=== PATIENT | female | born 1975 | race Caucasian/White ===

== ENCOUNTER 2016-04-20 11:19 | Emergency (ER) | payer OTHER ==
[~2016-04-20] VITALS: Ht 157.5 cm; Wt 81.6 kg
[~2016-04-20 11:19] MED LIST: BENADRYL PO; PERMETHRIN TP
[2016-04-20 11:31] VITALS: BP 120/50
--- NOTE | 2016-04-20 11:34 | NUR ---
Patient ambulated to bed 07.
--- NOTE | 2016-04-20 11:35 | NUR ---
PATIENT PRESENTS TO ED WITH LOWER ABD PAIN X2 DAYS WITH DIARRHEA .DENIES N/V; SKIN IS PINK/WARM/DRY; AAOX4 WITH EVEN AND STEADY GAIT; LUNGS CLEAR BL; HR EVEN AND REGULAR; PT DENIES ANY FEVER, CP, SOB, OR COUGH AT THIS TIME; PATIENT STATES LOWER ABD PAIN RADIATING TO LOWER BACK 10/10 AT THIS TIME; VSS; PATIENT POSITIONED FOR COMFORT; HOB ELEVATED; BEDRAILS UP X2; BED DOWN. ER MD MADE AWARE OF PT STATUS.
--- NOTE | 2016-04-20 11:41 | NUR ---
Dr. Garcia evaluating patient at bedside.
--- NOTE | 2016-04-20 12:02 | NUR ---
Patient discharged with v/s stable. Written and verbal after care instructions given and explained. Patient alert, oriented and verbalized understanding of instructions. Ambulatory with steady gait. All questions addressed prior to discharge. ID band removed. Patient advised to follow up with PMD. Rx of MACROBID AND MOTRIN given. Patient educated on indication of medication including possible reaction and side effects. Opportunity to ask questions provided and answered.
[2016-04-20 12:03] VITALS: BP 107/65
== END 2016-04-20 12:02 | disposition home or self-care (01) ==
LOC: MED 11:19
DX: N39.0 Urinary tract infection, site not specified (principal); Z90.49 Acquired absence of other specified parts of digestive tract

== ENCOUNTER 2017-12-18 08:18 | Emergency (ER) | payer OTHER ==
[~2017-12-18] VITALS: Ht 160 cm; Wt 82.1 kg
[2017-12-18 08:20] VITALS: BP 108/69
--- NOTE | 2017-12-18 08:24 | NUR ---
PT AMBULATES TO BED 6
--- NOTE | 2017-12-18 08:30 | NUR ---
42yo f to er for c/o epicastric pain and headsche since yesterday. aaox3, -dizziness, -blurry vision, +nausea, - v/d, bs active x4, abd soft tender in epigastric region, ls clear throughout, rr even/unlabored, -cough,- sob, - cp. skin warm and dry, pt report subjective fever, currently afebrial. er md made aware, will continue to monitor, er md made aware. pt placed in gown and positioned for comfort.
[2017-12-18] MEDS ORDERED: ONDANSETRON 4 MG ODT PO ONE (08:45)
[2017-12-18] MEDS ORDERED: LIDOCAINE VISCOUS 2% 20 ML UDC PO ONE (08:45)
[2017-12-18] MEDS ORDERED: ALUMINUM HYD/MAG/SIMETHICONE 30 ML UDC PO ONE (08:45)
--- NOTE | 2017-12-18 09:25 | NUR ---
PT RESTING IN NO APPEARENT DISTRESS. PT DENIEAS ANY PAIN AT THIS TIME
[2017-12-18 09:52] VITALS: BP 110/62
== END 2017-12-18 09:52 | disposition home or self-care (01) ==
LOC: MED 08:18
DX: K29.70 Gastritis, unspecified, without bleeding (principal); Z90.49 Acquired absence of other specified parts of digestive tract
CPT/HCPCS: 81002; 81025; 99284; S0119

== ENCOUNTER 2018-07-28 16:11 | Emergency (ER) | payer OTHER ==
[~2018-07-28] VITALS: Ht 160 cm; Wt 84.6 kg
--- NOTE | 2018-07-28 16:37 | NUR ---
C/O NON-RADIATING, SHARP 10/10 CHEST PAIN STARTING TODAY. DENIES N/V/D, SOB. PT REPORTS AN EPISODE OF BLURRY VISION AROUND 1300 TODAY. PT SKIN IS DRY AND WARM. PT ALERT ANSWERING QUESTIONS APPROPRIATELY. PT NSR 61, O2 SAT 98% RA
--- NOTE | 2018-07-28 16:45 | NUR ---
PT SINUS HAYDEE AT 54 BPM, ASYMPTOMATIC, DR. PERSON AWARE.
--- NOTE | 2018-07-28 16:58 | NUR ---
URINE COLLECTED AND SENT TO LAB
[2018-07-28] MEDS ORDERED: KETOROLAC 30 MG/ML VIAL IM ONE (17:05)
[2018-07-28 17:33] LABS: BASOPHILS % (AUTO) 0.6 % (0.0-2.0); EOSINOPHILS # (AUTO) 0.2 K/uL (0-0.4); EOSINOPHILS % (AUTO) 2.4 % (0.0-4.0); HEMATOCRIT 38.8 % (36-48); HEMOGLOBIN 13.2 g/dL (12.0-16.0); LYMPHOCYTES # (AUTO) 2.9 K/uL (2.5-16.5); LYMPHOCYTES % (AUTO) 35.2 % (20.5-51.1); MEAN CORPUSCULAR HEMOGLOBIN 31 pg (27-31); MEAN CORPUSCULAR HGB CONC 34 g/dL (33-37); MONOCYTES # (AUTO) 0.6 K/uL (0.8-1.0); NEUTROPHILS # (AUTO) 4.6 K/uL (1.8-7.7); NEUTROPHILS % (AUTO) 54.8 % (42.2-75.2); PLATELET COUNT (AUTO) 350 K/uL (140-450); RED BLOOD CELL COUNT(AUTO) 4.26 MIL/uL (4.20-5.40); RED CELL DISTRIBUTION WIDTH 12.7 % (11.6-13.7); WHITE BLOOD COUNT (AUTO) 8.3 K/uL (4.8-10.8)
[2018-07-28 17:47] LABS: ANION GAP 9.7 (8-16); CREATININE 0.8 mg/dL (0.6-1.3); POTASSIUM 3.7 mmol/L (3.5-5.1)
[2018-07-28 17:53] LABS: ALBUMIN 3.5 g/dL (3.4-5.0); TOTAL BILIRUBIN 0.2 mg/dL (0.0-1.0)
--- NOTE | 2018-07-28 18:17 | NUR ---
pt resting in bed, no c/o cp at this time
[2018-07-28 18:56] VITALS: BP 107/66
== END 2018-07-28 18:56 | disposition home or self-care (01) ==
LOC: MED 16:11
DX: R07.89 Other chest pain (principal); F43.9 Reaction to severe stress, unspecified; Z90.49 Acquired absence of other specified parts of digestive tract
CPT/HCPCS: 36415; 71045; 80053; 82550; 82553; 83690; 84484; 85025; 93005; 96372; 99284; J1885; Q0092

== ENCOUNTER 2019-06-03 11:30 | Emergency (ER) | payer OTHER ==
[~2019-06-03] VITALS: Ht 167.6 cm; Wt 88.9 kg
[2019-06-03 11:36] VITALS: BP 103/63
--- NOTE | 2019-06-03 11:43 | NUR ---
Pt ambulated to restroom to provide urine sample.
--- NOTE | 2019-06-03 12:28 | NUR ---
pt amb to bed 5
--- NOTE | 2019-06-03 12:49 | NUR ---
Transferred to bed 11 for further care. RN re-evaluating patient at bedside.
--- NOTE | 2019-06-03 12:49 | NUR ---
pt moved to bed 11
[2019-06-03] MEDS ORDERED: ONDANSETRON 4 MG ODT PO ONE (12:55)
[2019-06-03] MEDS ORDERED: FAMOTIDINE 20 MG TAB PO ONE (12:55)
[2019-06-03] MEDS ORDERED: LIDOCAINE VISCOUS 2% 20 ML UDC PO ONE (12:55)
[2019-06-03] MEDS ORDERED: ALUMINUM HYD/MAG/SIMETHICONE 30 ML UDC PO ONE (12:55)
--- NOTE | 2019-06-03 12:57 | NUR ---
43 Y/O F C/C ABDOMINAL PAIN X 1 DAY. PER PT HAVING PAIN DUE TO GASTRITIS, 12/19, PRESSURE SENSATION, NON RADIATING. PT TAKEN OMEPRAZOLE AND PAIN RX. PT NKA. NO HX. SX OF GALLBLADER. NO N/V/D. SIDE RAIL X1.
[2019-06-03 13:49] VITALS: BP 103/63
--- NOTE | 2019-06-03 13:50 | NUR ---
Patient discharged with v/s stable. Written and verbal after care instructions given and explained. Patient alert, oriented and verbalized understanding of instructions. Ambulatory with steady gait. All questions addressed prior to discharge. ID band removed. Patient advised to follow up with PMD. Rx of zofran odt, omeprazole, cephalexin given. Patient educated on indication of medication including possible reaction and side effects. Opportunity to ask questions provided and answered.
== END 2019-06-03 13:50 | disposition home or self-care (01) ==
LOC: MED 11:30
DX: K29.70 Gastritis, unspecified, without bleeding (principal); N39.0 Urinary tract infection, site not specified; K21.9 Gastro-esophageal reflux disease without esophagitis; Z90.49 Acquired absence of other specified parts of digestive tract
CPT/HCPCS: 81002; 81025; 99284; Q0162

== ENCOUNTER 2023-02-09 22:09 | Emergency (ER) | payer OTHER ==
[~2023-02-09] VITALS: Ht 157.5 cm; Wt 99.8 kg
[2023-02-09 22:10] VITALS: BP 106/76; PULSE 82; RESP 17; TEMP 97.8; O2SAT 97
[2023-02-09] MEDS ORDERED: MIRABULK PO (23:49)
[2023-02-09] MEDS ORDERED: PHEN26CR2 RC (23:49)
== END 2023-02-09 23:55 | disposition home or self-care (01) ==
LOC: MED 22:09
DX: K64.4 Residual hemorrhoidal skin tags (principal); K59.00 Constipation, unspecified; K21.9 Gastro-esophageal reflux disease without esophagitis; Z79.899 Other long term (current) drug therapy
CPT/HCPCS: 99282

== ENCOUNTER 2023-10-11 11:54 | Inpatient (IN) | payer OTHER ==
[~2023-10-11] VITALS: Ht 167.6 cm; Wt 110.7 kg
[~2023-10-11 11:54] MED LIST changes: -BENADRYL PO; +MIRABULK PO; -PERMETHRIN TP; +PHEN26CR2 RC
[2023-10-11 12:06] VITALS: BP 115/56; PULSE 51; RESP 16; TEMP 97.9; O2SAT 99
[2023-10-11 12:48] LABS: BASOPHILS % (AUTO) 0.5 % (0.0-2.0); EOSINOPHILS # (AUTO) 0.1 K/uL (0-0.4); EOSINOPHILS % (AUTO) 1.7 % (0.0-4.0); HEMATOCRIT 41.1 % (36-48); HEMOGLOBIN 13.9 g/dL (12.0-16.0); LYMPHOCYTES # (AUTO) 2.7 K/uL (2.5-16.5); LYMPHOCYTES % (AUTO) 35.8 % (20.5-51.1); MEAN CORPUSCULAR HEMOGLOBIN 31 pg (27-31); MEAN CORPUSCULAR HGB CONC 34 g/dL (33-37); MEAN CORPUSCULAR VOLUME 91.6 fL (80-94); MONOCYTES # (AUTO) 0.5 K/uL (0.8-1.0); MONOCYTES % (AUTO) 6.2 % (1.7-9.3); NEUTROPHILS # (AUTO) 4.1 K/uL (1.8-7.7); NEUTROPHILS % (AUTO) 55.8 % (42.2-75.2); PLATELET COUNT (AUTO) 364 K/uL (140-450); RED BLOOD CELL COUNT(AUTO) 4.48 MIL/uL (4.20-5.40); WHITE BLOOD COUNT (AUTO) 7.4 K/uL (4.8-10.8)
[2023-10-11 13:07] LABS: ANION GAP 13.8 (8-16); CALCIUM 9.3 mg/dL (8.5-10.1); CARBON DIOXIDE 25.9 mmol/L (21-32); CREATININE 0.8 mg/dL (0.6-1.3); INR 1.04 (0.8-1.2); PARTIAL THROMBOPLASTIN TIME 26.7 secs (22-35.6); POTASSIUM 3.7 mmol/L (3.5-5.1); PROTHROMBIN TIME 10.9 secs (10.8-13.4)
[2023-10-11 13:20] LABS: ALANINE AMINOTRANSFERASE 52 U/L (12-78); ALBUMIN 3.6 g/dL (3.4-5.0); ALKALINE PHOSPHATASE 72 U/L (50-136); ASPARTATE AMINOTRANSFERASE 28 U/L (15-37); BILIRUBIN,DIRECT 0.1 mg/dL (0.0-0.3); FREE T4 (FREE THYROXINE) 1.07 ng/dL (0.76-1.46); THYROID STIMULATING HORMONE 1.26 uIU/mL (0.34-3.74); TOTAL BILIRUBIN 0.4 mg/dL (0.0-1.0); TOTAL PROTEIN, SERUM 7.2 g/dL (6.4-8.2)
[2023-10-11] MEDS ORDERED: LORazepam 1 MG TAB PO PRN (15:00)
[2023-10-11] MEDS ORDERED: HYDROcodone/APAP 5/325 MG 1 TAB TAB PO PRN (15:00)
[2023-10-11] MEDS ORDERED: ACETAMINOPHEN 325 MG TAB PO PRN (15:00)
[2023-10-11] MEDS ORDERED: ZOLPIDEM 5 MG TAB PO PRN (15:00)
[2023-10-11] MEDS ORDERED: ONDANSETRON 4 MG/2 ML VIAL IVP PRN (15:00)
[2023-10-11] MEDS ORDERED: MORPHINE SULFATE 4 MG/ML SYR IVP PRN (15:00)
[2023-10-11] MEDS ORDERED: MAGNESIUM OXIDE 400 MG TAB PO PRN (15:00)
[2023-10-11] MEDS ORDERED: MAG SULF 2000 MG/WATER PREMIX 50 ML IV PRN (15:00)
[2023-10-11] MEDS ORDERED: KCL 20 MEQ IN 100 mL PREMIX 200 ML IV PRN (15:00)
[2023-10-11] MEDS ORDERED: POTASSIUM CHLORIDE 10 MEQ TABER PO PRN (15:00)
[2023-10-11] MEDS: NACL 0.9% 1,000 ML IV SCH (15:17)
[2023-10-11 21:35] VITALS: PULSE 54; RESP 17; O2SAT 98
[2023-10-12] VITALS: BP 108/63; PULSE 52; PULSE 53; RESP 18; TEMP 96.6; O2SAT 97
[2023-10-12 04:00] VITALS: BP 101/64; PULSE 52; PULSE 65; RESP 18; TEMP 96.9; O2SAT 97
[2023-10-12 06:37] LABS: LYMPHOCYTES # (AUTO) 2.9 K/uL (2.5-16.5); MONOCYTES # (AUTO) 0.6 K/uL (0.8-1.0); WHITE BLOOD COUNT (AUTO) 7.6 K/uL (4.8-10.8)
[2023-10-12 06:53] LABS: BASOPHILS % (AUTO) 0.4 % (0.0-2.0); EOSINOPHILS # (AUTO) 0.2 K/uL (0-0.4); HEMATOCRIT 37.3 % (36-48); HEMOGLOBIN 12.5 g/dL (12.0-16.0); LYMPHOCYTES % (AUTO) 38.8 % (20.5-51.1); MEAN CORPUSCULAR HEMOGLOBIN 31 pg (27-31); MEAN CORPUSCULAR HGB CONC 34 g/dL (33-37); MEAN CORPUSCULAR VOLUME 91.9 fL (80-94); MONOCYTES % (AUTO) 8.3 % (1.7-9.3); NEUTROPHILS # (AUTO) 3.8 K/uL (1.8-7.7); NEUTROPHILS % (AUTO) 50.5 % (42.2-75.2); PLATELET COUNT (AUTO) 319 K/uL (140-450); RED BLOOD CELL COUNT(AUTO) 4.06 MIL/uL (4.20-5.40)
[2023-10-12 07:11] LABS: ANION GAP 10.5 (8-16); CALCIUM 8.2 mg/dL (8.5-10.1); CARBON DIOXIDE 26.4 mmol/L (21-32); CREATININE 0.8 mg/dL (0.6-1.3); POTASSIUM 3.9 mmol/L (3.5-5.1)
[2023-10-12 08:00] VITALS: BP 103/73; PULSE 50; PULSE 57; RESP 18; TEMP 96.7; O2SAT 98; O2SAT 99
[2023-10-12] MEDS: ENOXAPARIN 40 MG/0.4 ML SYR SUBQ SCH (08:24)
[2023-10-12] MEDS: MEDS-TO-BEDS MC SCH (09:00)
[2023-10-12 12:00] VITALS: BP 101/61; PULSE 58; PULSE 60; RESP 18; TEMP 97.6; O2SAT 98
[2023-10-12 13:41] VITALS: BP 101/61; PULSE 60; RESP 18; TEMP 97.6
== END 2023-10-12 15:58 | disposition home or self-care (01) | DRG 201 ==
LOC: MED 11:54 → MTU 14:59
PROVIDERS: ADMIT Internal Medicine; ATTEND Internal Medicine
DX: R00.1 Bradycardia, unspecified (principal); F32.A Depression, unspecified; K21.9 Gastro-esophageal reflux disease without esophagitis; Z63.4 Disappearance and death of family member; Z79.899 Other long term (current) drug therapy
CPT/HCPCS: 36415; 71045; 80048; 80076; 83735; 83880; 84439; 84443; 84484; 85025; 85610; 85730; 87081; 93005; 99285; J1650